=== PATIENT | female | born 1995 | race Caucasian/White ===

== ENCOUNTER 2018-02-21 09:47 | Emergency (ER) | payer BC ==
[2018-02-21 10:04] VITALS: BP 115/80
--- NOTE | 2018-02-21 10:27 | UC ---
Respiratory Complaint HPI - HPI Summary HPI Summary: 22 y/o female presents to the urgent care c/o productive cough, sinus congestion w/ green nasal discharge for the past 2 weeks. Pt reports sore throat is intermittent and worse in her palate. Pain w/ swallowing and sinus pain is 4/10. Pt hs taken Delsym PO to alleviate symptoms. She had body aches, chills at the beginning of symptoms , but no fever. Pt is UTD w/ all vaccines for her age. Pt denies SOB, chest pain, abdominal pain, N/V/D. - History of Current Complaint Chief Complaint: UCRespiratory Stated Complaint: COUGH,ACHY,HEADACHE,SORE THROAT Time Seen by Provider: 02/21/18 10:19 Hx Obtained From: Patient Hx Last Menstrual Period: 01/22/18 Onset/Duration: Gradual Onset, Lasting Weeks - 2 week, Still Present, Worse Since - 3 days w/ green nasal discharge Timing: Constant Severity Initially: Mild Severity Currently: Moderate Pain Intensity: 4 - sore throat and sinus pain Pain Scale Used: 0-10 Numeric Character: Cough: Productive - at times, Sputum Description: - yellowish Aggravating Factors: Recumbent Position Alleviating Factors: OTC Meds Associated Signs And Symptoms: Positive: URI, Nasal Congestion, Sinus Discomfort. Negative: Fever, Chills, Wheezing - Risk Factors Pulmonary Embolism Risk Factors: Negative Cardiac Risk Factors: Negative Pseudomonas Risk Factors: Negative Tuberculosis Risk Factors: Negative - Allergies/Home Medications Allergies/Adverse Reactions: Allergies Allergy/AdvReac Type Severity Reaction Status Date / Time No Known Allergies Allergy Verified 02/21/18 10:01 Home Medications: Home Medications Tri-Estarylla (Nf) [Tri-Estarylla] 1 tab PO DAILY 02/21/18 [History Confirmed ] PMH/Surg Hx/FS Hx/Imm Hx Previously Healthy: Yes - Pt denies PMHX - Surgical History Surgical History: Yes Surgery Procedure, Year, and Place: T & A - Family History Known Family History: Positive: Diabetes - Social History Occupation: Student Lives: With Family Alcohol Use: Occasionally Substance Use Type: None Smoking Status (MU): Never Smoked Tobacco - Immunization History Vaccination Up to Date: Yes Review of Systems Constitutional: Negative Skin: Negative Eyes: Negative ENT: Sore Throat, Nasal Discharge, Sinus Congestion, Sinus Pain/Tenderness Respiratory: Cough - productive Cardiovascular: Negative Gastrointestinal: Negative Genitourinary: Negative Motor: Negative Neurovascular: Negative Musculoskeletal: Negative Neurological: Negative Psychological: Negative Is Patient Immunocompromised?: No All Other Systems Reviewed And Are Negative: Yes Physical Exam - Summary Physical Exam Summary: Vitals: reviewed General: Well developed, well-nourished female adolescent patient with NAD. Head and face: Normocephalic and atraumatic, Positive tenderness over the frontal and maxillary sinuses.. Eyes: PERRLA, EOMI x 2. Normal conjunctiva. No eye discharge. ENT: Ears and TM with normal limits. Nose: edematous and erythematous nasal mucosa with with yellowish discharge and erythematous mucosa. Pharynx with erythema, no exudate. + green PND Neck: Supple, no JVD, no carotid bruits and no lymphadenopathy. Lungs: clear, no rales, no rhonchi, no wheezes. CVS: RRR, S1 and S2 present no murmurs or gallops appreciated. Abdomen: soft nontender with positive bowel sounds. Extremities: no edema noted. Neuro: WNL. Skin: warm and dry Triage Information Reviewed: Yes Vital Signs: Initial Vital Signs Temp 98.4 F 02/21/18 09:58 Pulse 76 02/21/18 09:58 Resp 15 02/21/18 09:58 BP 115/80 02/21/18 09:58 Pulse Ox 100 02/21/18 09:58 Diagnostic Evaluation - Laboratory O2 Sat by Pulse Oximetry: 100 Respiratory Course/Dx - Course Course Of Treatment: 22 y/o female presents to the urgent care c/o productive cough, sinus congestion w/ green nasal discharge for the past 2 weeks. Pt reports sore throat is intermittent and worse in her palate. Pain w/ swallowing and sinus pain is 4/10. Pt hs taken Delsym PO to alleviate symptoms. She had body aches, chills at the beginning of symptoms , but no fever. Pt is UTD w/ all vaccines for her age. Pt denies SOB, chest pain, abdominal pain, N/V/ D. Hx obtained. Pt with 2 weeks of symptoms getting worse. Pt Rx Augmentin PO and flonase nasal spray. Advised to continue w/ Delsym PO for cough. Discharge instructions explained to Pt. Advised to Return to the clinic or PCP if symptoms do not improve.Pt understood and agreed with plan of care. - Differential Dx/Diagnosis Differential Diagnosis/HQI/PQRI: Bronchitis, Influenza, Laryngitis, Lower Resp Infection, Sinusitis, Other - pharyngitis Provider Diagnoses: 1- Acute bacterial sinusitis Discharge - Sign-Out/Discharge Documenting (check all that apply): Patient Departure - D/C home All imaging exams completed and their final reports reviewed: No Studies - Discharge Plan Condition: Stable Disposition: HOME Prescriptions: Amoxicillin/Clavulanate TAB* [Augmentin TAB 875*] 875 mg PO BID #20 tab Fluticasone NASAL SPRAY 50MCG* [Flonase NASAL SPRAY 50MCG*] 2 spray BOTH NARES DAILY #1 btl Patient Education Materials: Sinusitis (ED) Forms: *School Release Ref[place]: [facility] [place] [facility] [place]] - 3 Days Additional Instructions: 1- Please increase fluid intake and rest. take full course of antibiotic to avoid resistance 2-Use Flonase as directed to help drain fluid. Also buy saline drops to clear sinuses 3-Return to the clinic or PCP in 3 days if symptoms do not improve for further management and treatment - Billing Disposition and Condition Condition: STABLE Disposition: Home
== END 2018-02-21 10:54 | disposition home or self-care (01) ==
LOC: UCCORT 09:47
DX: J01.90 Acute sinusitis, unspecified (principal); B96.89 Other specified bacterial agents as the cause of diseases classified elsewhere
CPT/HCPCS: 99202; G0463

== ENCOUNTER 2019-03-20 15:10 | Emergency (ER) | payer BC ==
--- NOTE | 2019-03-20 16:02 | UC ---
Dizzy HPI HPI Summary: 23 y/o female presents to the urgent care accompany by mother c/o sx started 03/12/19-had syncopal episode while standing at a democr[employer] with alot of people around, had not been drinking alcohol, has had 2 other incidents since then where she has felt like she was going to "pass out", legs and arms get "tingling", feels her "heart racing" - History Of Current Complaint Stated Complaint: LIGHT HEADED Time Seen by Provider: 03/20/19 15:59 Hx Obtained From: Patient Hx Last Menstrual Period: 01/22/18 Onset/Duration: Gradual Onset, Lasting Weeks - 1 week w/ near syncope episode s/ p being in a crowd room Timing: Seconds Severity Initially: Mild Severity Currently: Mild Pain Intensity: 0 Pain Scale Used: 0-10 Numeric Character: Lightheaded Aggravating Factor(s): Nothing Alleviating Factor(s): Rest Associated Signs And Symptoms: Positive: Nausea, Palpitations, Change In Medication - Pt started to take Adderal and lexapro PO about 30 days ago. Negative: Vomiting, Diaphoresis, Tinnitus, Chest Pain, SOB, Unsteady Gait, Visual Changes, Decreased Oral Intake - Risk Factors Cardiac Risk Factors: Negative CVA Risk Factor: Negative - Allergies/Home Medications Allergies/Adverse Reactions: Allergies Allergy/AdvReac Type Severity Reaction Status Date / Time No Known Allergies Allergy Verified 03/20/19 16:06 Home Medications: Home Medications Amphetamine MIXED SALT TAB* [Adderall TAB*] 1 - 2 tab PO DAILY 03/20/19 [ History Confirmed 03/20/19] Escitalopram Oxalate [Lexapro 10 mg] 10 mg PO DAILY 03/20/19 [History Confirmed 03/20/19] PMH/Surg Hx/FS Hx/Imm Hx Previously Healthy: Yes Psychological History: Anxiety, Depression - Surgical History Surgical History: Yes Surgery Procedure, Year, and Place: T & A - Family History Known Family History: Positive: Cardiac Disease, Diabetes - Social History Occupation: Student Lives: With Family Alcohol Use: Occasionally Substance Use Type: None Smoking Status (MU): Never Smoked Tobacco - Immunization History Vaccination Up to Date: Yes Review of Systems All Other Systems Reviewed And Are Negative: Yes Constitutional: Positive: Negative Skin: Positive: Negative Eyes: Positive: Negative ENT: Positive: Other - light headed this morning Respiratory: Positive: Negative Dizzy Course/Dx - Differential Dx/Diagnosis Differential Diagnosis/HQI/PQRI: Anxiety, Benign Paroxysmal Positional Vertigo, Hyperventilation, Medication Reaction, Myocardial Infarction, Vasovagal Reaction , Other - pregnacy, hyperthyrodism Provider Diagnosis: Heart palpitations, Dizziness, nonspecific Discharge ED - Sign-Out/Discharge Documenting (check all that apply): Patient Departure All imaging exams completed and their final reports reviewed: No Studies - Discharge Plan Condition: Stable Disposition: HOME Patient Education Materials: Near Syncope (ED) Referrals: [facility] [place] [facility] [Outside] - 3 Days Additional Instructions: 1- Please continue taking your Medication for anxiety Adderal and Lexapro as directed by your Psychologist since you have missed some tabs. Your symptoms maybe a side effect of your medication. 2- Please increase hydration and eat well. Some blood work : CBC, CMP TSH and T4 were ordered and send to lab, you will be notified of any abnormality for further management. Urine culture sent to lab, you will be notified of any abnormality since you have your period today. test: negative 3- Your EKG is WNL now. However it is very important that you f/u w/ your PCP for further work up and management, you may need a Senior Solutions Engineer referral for further work up on palpitations. 4- If dizziness and palpitations developed w/ SOB, or chest pain please go Immediately to the ER for further evaluation and treatment. - Billing Disposition and Condition Condition: STABLE Disposition: Home
[2019-03-20 16:16] VITALS: BP 126/84
[2019-03-21 10:17] LABS: ABS Basophils 0.1 10^3/ul (0-0.2); ABS Eosinophils 0.1 10^3/ul (0-0.6); ABS Lymphocytes 2.4 10^3/ul (1.0-4.8); ABS Monocytes 0.6 10^3/ul (0-0.8); ABS Neutrophils 3.4 10^3/ul (1.5-7.7); Hematocrit 42 % (35-47); Hemoglobin 14.2 g/dL (12.0-16.0); Lymphocyte % 36.4 %; Mean Corpuscular HGB Conc 34 g/dL (31-36); Mean Corpuscular Hemoglobin 28 pg (27-31); Mean Corpuscular Volume 82 fL (80-97); Nucleated Red Blood Cells % 0.2; Platelet Count 325 10^3/uL (150-450); Red Blood Count 5.08 10^6 /uL (3.70-4.87); Red Cell Distribution Width 14 % (10-15); White Blood Count 6.5 10^3/uL (3.5-10.8)
[2019-03-21 10:42] LABS: Albumin 4.9 g/dL (3.2-5.2); Calcium 10.3 mg/dL (8.6-10.3); Potassium 3.8 mmol/L (3.5-5.0); TSH (Thyroid Stimulating Horm) 1.14 mcIU/mL (0.34-5.60); Total Bilirubin 0.6 mg/dL (0.2-1.0)
[2019-03-21 10:43] LABS: Free T4 0.82 ng/dL (0.61-1.12)
[2019-03-21 10:48] LABS: Albumin/Globulin Ratio 1.6 (1-3); BUN/Creatinine Ratio 11.5 (8-20); EGFR African American 88.8 (>60); EGFR Non-African American 73.4 (>60); Globulin 3.1 g/dL (2-4)
--- NOTE | 2019-03-22 07:17 | UC ---
- Progress Note Progress Note: Reviewed chart note and labs: seen for episodes of dizziness and heart racing. Labs reviewed and show normal CBC, chemistries and TSH. Was advised 3 day follow up with PCP--> no change in management based on lab review. Course/Dx - Diagnoses Provider Diagnoses: Heart palpitations, Dizziness, nonspecific Discharge ED - Sign-Out/Discharge Documenting (check all that apply): Post-Discharge Follow Up All imaging exams completed and their final reports reviewed: No Studies - Discharge Plan Condition: Stable Disposition: HOME Patient Education Materials: Near Syncope (ED) Referrals: [facility] [Outside] - 3 Days Additional Instructions: 1- Please continue taking your Medication for anxiety Adderal and Lexapro as directed by your Psychologist since you have missed some tabs. Your symptoms maybe a side effect of your medication. 2- Please increase hydration and eat well. Some blood work : CBC, CMP TSH and T4 were ordered and send to lab, you will be notified of any abnormality for further management. Urine culture sent to lab, you will be notified of any abnormality since you have your period today. test: negative 3- Your EKG is WNL now. However it is very important that you f/u w/ your PCP for further work up and management, you may need a Desk Attendant referral for further work up on palpitations. 4- If dizziness and palpitations developed w/ SOB, or chest pain please go Immediately to the ER for further evaluation and treatment. - Billing Disposition and Condition Condition: STABLE Disposition: Home
--- NOTE | 2019-03-23 07:13 | UC ---
- Progress Note Progress Note: + Strep B urine Rx cephalexin please call pt Course/Dx - Diagnoses Provider Diagnoses: Heart palpitations, Dizziness, nonspecific Discharge ED - Sign-Out/Discharge Documenting (check all that apply): Post-Discharge Follow Up All imaging exams completed and their final reports reviewed: No Studies - Discharge Plan Condition: Stable Disposition: HOME Patient Education Materials: Near Syncope (ED) Referrals: [facility] [place] [facility] [Outside] - 3 Days Additional Instructions: 1- Please continue taking your Medication for anxiety Adderal and Lexapro as directed by your Psychologist since you have missed some tabs. Your symptoms maybe a side effect of your medication. 2- Please increase hydration and eat well. Some blood work : CBC, CMP TSH and T4 were ordered and send to lab, you will be notified of any abnormality for further management. Urine culture sent to lab, you will be notified of any abnormality since you have your period today. test: negative 3- Your EKG is WNL now. However it is very important that you f/u w/ your PCP for further work up and management, you may need a Carburetor Expert referral for further work up on palpitations. 4- If dizziness and palpitations developed w/ SOB, or chest pain please go Immediately to the ER for further evaluation and treatment. - Billing Disposition and Condition Condition: STABLE Disposition: Home
== END 2019-03-20 17:19 | disposition home or self-care (01) ==
LOC: UCCORT 15:10
DX: R42 Dizziness and giddiness (principal); R00.2 Palpitations; B95.1 Streptococcus, group B, as the cause of diseases classified elsewhere; H81.10 Benign paroxysmal vertigo, unspecified ear; R11.0 Nausea; F32.9 Major depressive disorder, single episode, unspecified; F41.9 Anxiety disorder, unspecified
CPT/HCPCS: 36415; 80053; 81003; 84439; 84443; 84702; 85025; 87077; 87086; 93005; 99212; G0463